=== PATIENT | male | born 1970 | race Caucasian/White ===

== ENCOUNTER 2017-05-21 10:24 | Emergency (ER) | payer OTHER ==
[~2017-05-21] VITALS: Ht 177.8 cm; Wt 113.4 kg
[2017-05-21] MEDS ORDERED: ZOLOFT100 MG PO (10:38)
== END 2017-05-21 12:28 | disposition home or self-care (01) ==
LOC: ED 10:24
DX: S93.402A Sprain of unspecified ligament of left ankle, initial encounter (principal); I10 Essential (primary) hypertension; E78.00 Pure hypercholesterolemia, unspecified; F41.9 Anxiety disorder, unspecified; X50.1XXA Overexertion from prolonged static or awkward postures, initial encounter; Y99.0 Civilian activity done for income or pay; Z90.49 Acquired absence of other specified parts of digestive tract; Z88.5 Allergy status to narcotic agent; Z79.899 Other long term (current) drug therapy
CPT/HCPCS: 73610; 73630; 99283